=== PATIENT | male | born 1990 | race Caucasian/White ===

== ENCOUNTER 2018-08-29 10:16 | Emergency (ER) | payer SELFPAY ==
[~2018-08-29] VITALS: Ht 185.4 cm; Wt 80.0 kg
[2018-08-29 10:18] VITALS: BP 126/80; PULSE 65; RESP 18; Ht 185.4 cm; Wt 80.0 kg
[2018-08-29] MEDS ORDERED: DIPHTH/TET/ACEL PERTUSS (ADULT) 0.5 ML VIAL IM* ONE (11:00)
[2018-08-29] MEDS ORDERED: LIDOCAINE 1%/EPI (MDV) 50 ML INJ INJ ONE (11:00)
--- NOTE | 2018-08-29 13:36 | ERD ---
ER Documentation Chief Complaint Chief Complaint lac on left hand x 30 minutes, cut with knife by self at school ROS All systems reviewed and are negative except as per history of present illness. PMhx/Soc Medical and Surgical Hx: pt denies Medical Hx, pt denies Surgical Hx Hx Alcohol Use: No Hx Substance Use: No Hx Tobacco Use: No Smoking Status: Never smoker Physical Exam Vitals Vital Signs Date Temp Pulse Resp B/P (MAP) Pulse Ox O2 O2 Flow FiO2 Time Delivery Rate 08/29/18 97.8 65 18 126/80 98 10:18 (95) Physical Exam General: WD/WN, in no apparent distress, non-toxic appearing HENT: NC/AT Eyes: Conjunctiva normal Neck: Supple Pulm: Normal labored breathing CV: Good capillary refill GI: Non-distended, no guarding Back: No masses Ext: No clubbing, cyanosis, or edema, patient had full range of motion of hand and digits. Neuro: Moves on all fours, no neuro deficits, sensation intact Skin: 3cm per facial laceration to the dorsal radial 1st webspace Psych: Normal mood Results 24 hrs Current Medications Medications Dose Sig/Santiago Start Time Status Last (Trade) Ordered Route PRN Stop Time Admin Dose Reason Admin Lidocaine/ 50 ml ONCE ONCE 08/29/18 DC Epinephrine INJ 11:00 (Xylocaine 08/29/18 11:01 1%/ Epi (Mdv)) Diphtheria/ 0.5 ml ONCE ONCE 08/29/18 DC 08/29/18 Tetanus/Acell IM* 11:00 10:58 Pertussis 08/29/18 11:01 (Adacel) Procedures/MDM MDM: 28-year-old male presents to the ED with a superficial laceration on the right hand. My clinical suspicion for fracture, nerve/tendon/arterial injury is low due to physical examination. In the ED, patient was given TDAP and prepared for wound closure. neurovascularly intact pre and post treatment. Prescription was given. Discussed to return to this facility or primary care physician in [] days for suture removal. Discussed to return to the ER for any signs of infection or if condition worsens. Patient expressed agreement and understanding of the plan. PROCEDURE NOTE: Consent was obtained. Patient was positioned appropriately. Copious amount of normal saline was used for irrigation. Approximately 6cc of lidocaine with epinephrine was used as a local anesthetic. Patient was sterile draped with wound exposed. Wound was closed with good approximation with 5 x 4-0 Ethilon sutures. Procedure tolerated without complications. Departure Diagnosis: Primary Impression: Laceration Condition: Stable Patient Instructions: Laceration, Hand Additional Instructions: Follow up in 2 days in your clinic for wound check. Follow up with your physician to remove the stitches: 7-10 days Return to this facility if you are not improving as expected. ANTONIO LONG PA-C Aug 29, 2018 13:36
== END 2018-08-29 15:30 | disposition home or self-care (01) ==
LOC: FTE 10:16
DX: S61.412A Laceration without foreign body of left hand, initial encounter (principal); W26.0XXA Contact with knife, initial encounter; Y92.219 Unspecified school as the place of occurrence of the external cause; Z23 Encounter for immunization
CPT/HCPCS: 90471; 90715